=== PATIENT | male | born 1960 | race Caucasian/White ===

== ENCOUNTER → 2023-09-06 | Emergency (ER) | payer SELFPAY ==
[~2023-09-06] MED LIST: FENTANYL CITR 100 MCG/2 ML ONE; NA CHLORIDE 0.9% 1,000 ML ONE; NA CHLORIDE 0.9% 100 ML ONE; NA CHLORIDE 0.9% 250 ML ONE; ONDANSETRON 4 MG/2 ML VIAL ONE; PANTOPRAZOLE 40 MG INJ ONE; PIPERACIL/TAZO 3.375 GM VIAL IV ONE
--- NOTE | 2023-09-06 12:22 | RAD REPORT ---
EXAM DESCRIPTION: CT - Head C Spine Cap Wo Con - 09/06/2023 11:55 am CLINICAL HISTORY: Head and neck injury with chest and abdominal pain status post fall TECHNIQUE: Computed axial tomography of head, neck, chest, abdomen and pelvis obtained. IV and oral contrast not requested. Coronal and sagittal reconstruction performed. All CT scans are performed using dose optimization technique as appropriate and may include automated exposure control or mA/KV adjustment according to patient size. COMPARISON: None FINDINGS: An intracranial bleed is not seen. The ventricles are normal in caliber. An extra-axial fluid collection is not noted. Fluid within the sinuses/mastoids is not seen. A cervical fracture is not seen. No dislocation is noted. The evaluation of mediastinum, cortney, vessels, solid organs and bowel are limited secondary to the lac k of contrast administration. A mediastinal hematoma is not noted. A pleural effusion is not seen. A lung contusion is not present. The liver,spleen, pancreas, adrenals,kidneys and bladder do not demonstrate an acute traumatic injury Cholecystectomy Wall of the distal esophagus appears thickened Soft tissue structure right inguinal canal presumably testicle Normal appendix IMPRESSION: No acute intracranial abnormality is seen. A cervical fracture is not visualized. If the patient continues to have symptoms to suggest intracran ial/spinal cord pathology MRI be recommended No acute traumatic abnormality involving the chest, abdomen or pelvis Wall of the distal esophagus appears thickened which may indicate inflammation. Follow-up recommended
--- NOTE | 2023-09-06 13:07 | RAD REPORT ---
EXAM DESCRIPTION: RAD - Chest Single View - 09/06/2023 12:57 pm CLINICAL HISTORY: COUGH Chest pain. COMPARISON: No comparisons FINDINGS: Portable technique limits examination quality. The lungs are grossly clear. The heart is normal in size. No displaced fractures. IMPRESSION: No acute intrathoracic process suspected.
[2023-09-06 13:55] LABS: Absolute Lymphocytes (CBC) 1.3 K/uL (0.7-4.9); Hematocrit 39.3 % (39.6-49.0); Lymphocytes % 5.9 % (15.3-44.8); Platelets 349 thou/uL (152-406)
[2023-09-06 14:15] LABS: Albumin 2.4 g/dL (3.4-5.0); Bilirubin Direct 0.3 mg/dL (0-0.2); Bilirubin Indirect, Calculated 0.4 mg/dL (0.2-0.8); Bilirubin Total 0.7 mg/dL (0.2-1.0); Magnesium 2.2 mg/dL (1.6-2.4); Potassium 3.9 mEq/L (3.5-5.1); Protein, Total 6.2 g/dL (6.4-8.2)
[2023-09-06 14:18] LABS: Troponin High Sensitivity 83.9 pg/mL (<58.9)
--- NOTE | 2023-09-06 15:18 | EDPHYS ---
Physician Documentation [facility] Name: Yogi Luke Age: 63 yrs Sex: Male : 1960 Arrival Date: 09/06/2023 Time: 11:32 Bed 2 Private MD: ED Physician Toni Navarro HPI: 09/06 15:10 This 63 yrs old Male presents to ER via EMS with complaints of afia Nausea/Vomiting/Diarrhea. 15:10 The patient presents to the emergency department with nausea, vomiting, abdominal pain. afia Onset: The symptoms/episode began/occurred yesterday. Possible causes: bad food exposure. The symptoms are aggravated by nothing. The symptoms are alleviated by nothing. Associated signs and symptoms: Pertinent positives: abdominal pain, nausea, vomiting. Severity of symptoms: At their worst the symptoms were moderate in the emergency department the symptoms are unchanged. The patient has not experienced similar symptoms in the past. Historical: - Allergies: 11:38 No Known Allergies; kc6 - PMHx: 11:38 None; kc6 - PSHx: 11:38 Cholecystectomy; kc6 - Immunization history:: Adult Immunizations not up to date. - Social history:: Smoking status: Patient reports the use of cigarette tobacco products, smokes one pack cigarettes per day. ROS: 15:11 Constitutional: Negative for fever, chills, and weight loss, Eyes: Negative for injury, afia pain, redness, and discharge, ENT: Negative for injury, pain, and discharge, Neck: Negative for injury, pain, and swelling, Cardiovascular: Negative for chest pain, palpitations, and edema, Respiratory: Negative for shortness of breath, cough, wheezing, and pleuritic chest pain, Back: Negative for injury and pain, : Negative for injury, bleeding, discharge, and swelling, MS/Extremity: Negative for injury and deformity, Neuro: Negative for headache, weakness, numbness, tingling, and seizure, Psych: Negative for depression, anxiety, suicide ideation, homicidal ideation, and hallucinations, Allergy/Immunology: Negative for hives, rash, and allergies, Endocrine: Negative for neck swelling, polydipsia, polyuria, polyphagia, and marked weight changes, Hematologic/Lymphatic: Negative for swollen nodes, abnormal bleeding, and unusual bruising, 15:11 Abdomen/GI: Positive for abdominal pain, nausea and vomiting, abdominal cramps, abdominal distension, 15:11 MS/extremity: Positive for injury or acute deformity, decreased range of motion, pain, tenderness, of the left leg, Exam: 15:11 Abdomen/GI: Inspection: distension, Bowel sounds: normal, Palpation: mild abdominal afia tenderness, moderate abdominal tenderness, in the right upper quadrant and right lower quadrant, Rectal exam: rectal tone normal, stool guaiac positive, hemorrhoid(s), are not appreciated, mass, is not appreciated, swelling, is not appreciated, tenderness, is not appreciated, Liver: no appreciated palpable abnormalities, Hernia: not appreciated, 15:11 Constitutional: This is a well developed, well nourished patient who is awake, alert, and in no acute distress. Head/Face: Normocephalic, atraumatic. Eyes: Pupils equal round and reactive to light, extra-ocular motions intact. Lids and lashes normal. Conjunctiva and sclera are non-icteric and not injected. Cornea within normal limits. Periorbital areas with no swelling, redness, or edema. ENT: Nares patent. No nasal discharge, no septal abnormalities noted. Tympanic membranes are normal and external auditory canals are clear. Oropharynx with no redness, swelling, or masses, exudates, or evidence of obstruction, uvula midline. Mucous membranes moist. Neck: Trachea midline, no thyromegaly or masses palpated, and no cervical lymphadenopathy. Supple, full range of motion without nuchal rigidity, or vertebral point tenderness. No Meningismus. Chest/axilla: Normal chest wall appearance and motion. Nontender with no deformity. No lesions are appreciated. Cardiovascular: Regular rate and rhythm with a normal S1 and S2. No gallops, murmurs, or rubs. Normal PMI, no JVD. No pulse deficits. Respiratory: Lungs have equal breath sounds bilaterally, clear to auscultation and percussion. No rales, rhonchi or wheezes noted. No increased work of breathing, no retractions or nasal flaring. Back: No spinal tenderness. No costovertebral tenderness. Full range of motion. Male : Normal genitalia with no discharge or lesions. MS/ Extremity: Pulses equal, no cyanosis. Neurovascular intact. Full, normal range of motion. Neuro: Awake and alert, GCS 15, oriented to person, place, time, and situation. Cranial nerves II-XII grossly intact. Motor strength 5/5 in all extremities. Sensory grossly intact. Cerebellar exam normal. Normal gait. Psych: Awake, alert, with orientation to person, place and time. Behavior, mood, and affect are within normal limits. 15:11 ECG was reviewed by the Attending Physician. 17:31 Abdomen/GI: Inspection: distension, Bowel sounds: normal, Palpation: mild abdominal afia tenderness, moderate abdominal tenderness, in the right upper quadrant and left upper quadrant, Rectal exam: rectal tone normal, Stool: guaiac positive, black, hemorrhoid(s), are not appreciated, mass, is not appreciated, swelling, is not appreciated, tenderness, is not appreciated, fecal impaction, is not appreciated, Liver: no appreciated palpable abnormalities, Hernia: not appreciated, Vital Signs: 11:37 BP 93 / 65; Pulse 97; Resp 19 S; Temp 97.7(O); Pulse Ox 97% on R/A; Weight 111.13 kg kc6 (R); Height 5 ft. 7 in. (R); 12:10 Pulse 102; Resp 18; Pulse Ox 95% on R/A; ld1 13:49 BP 122 / 75; Pulse 93; Resp 18; Pulse Ox 100% on R/A; ld1 16:58 BP 120 / 74; Pulse 99; Resp 18; Pulse Ox 95% on R/A; ld1 17:58 BP 122 / 65; Pulse 99; Resp 18; Pulse Ox 98% on R/A; ld1 11:37 Body Mass Index 38.37 (111.13 kg, 170.18 cm) kc6 Bambi Coma Score: 15:44 Eye Response: spontaneous(4). Motor Response: obeys commands(6). Verbal Response: afia oriented(5). Total: 15. MDM: 11:39 Patient medically screened. afia 15:44 Differential diagnosis: Contusion of Hematoma on Intracranial bleed- Concussion without afia LOC. cerebral contusion, Nonspecific abd pain, gastritis, pancreatitis, diverticulitis, viral gastroenteritis, gastroenteritis. Differential Diagnosis: cardiac arrhythmia, cerebrovascular accident, emotional response, GI bleed, idiopathic syncope, transient ischemic attack, vasovagal episode. Data reviewed: vital signs, nurses notes, EMS record, lab test result(s), EKG, radiologic studies, CT scan, plain films. Consideration of Admission/Observation Escalation of care including admission/observation considered. I considered the following discharge prescriptions or medication management in the emergency department Medications were administered in the Emergency Department. See MAR. Independent interpretation of the following test(s) in the Emergency Department EKG: See my EKG interpretation above. Test considered but Not performed: MRI: NO MRCP. Historians other than the Patient: EMS: EMS WELL INFORMED. Care significantly affected by the following chronic conditions: Obesity, NONE. 09/06 11:41 Order name: Basic Metabolic Panel; Complete Time: 15:00 [facility] 09/06 11:41 Order name: CBC with Diff; Complete Time: 15:46 [facility] 09/06 11:41 Order name: LFT's; Complete Time: 15:00 [facility] 09/06 11:41 Order name: Magnesium; Complete Time: 15:00 [facility] 09/06 11:41 Order name: NT PRO-BNP; Complete Time: 15:00 [facility] 09/06 11:41 Order name: PT-INR; Complete Time: 15:46 [facility] 09/06 11:41 Order name: Troponin HS; Complete Time: 15:00 [facility] 09/06 11:41 Order name: Lipase; Complete Time: 15:00 [facility] 09/06 15:09 Order name: Lactate w/ 2H reflex if indic.; Complete Time: 17:53 [facility] 09/06 15:11 Order name: CPK; Complete Time: 17:20 [facility] 09/06 15:24 Order name: CBC Smear Scan; Complete Time: 15:46 [facility] 09/06 15:53 Order name: CBC with Diff; Complete Time: 17:20 [facility] 09/06 11:41 Order name: XRAY Chest (1 view); Complete Time: 15:00 [facility] 09/06 11:54 Order name: Head C Spine Cap Wo Con; Complete Time: 15:00 [facility] 09/06 11:41 Order name: EKG; Complete Time: 11:42 [facility] 09/06 11:41 Order name: Cardiac monitoring; Complete Time: 11:49 [facility] 09/06 11:41 Order name: EKG - Nurse/Tech; Complete Time: 11:49 [facility] 09/06 11:41 Order name: IV Saline Lock; Complete Time: 11:49 [facility] 09/06 11:41 Order name: Labs collected and sent; Complete Time: 12:11 [facility] 09/06 11:41 Order name: O2 Per Protocol; Complete Time: 11:49 [facility] 09/06 11:41 Order name: O2 Sat Monitoring; Complete Time: 11:49 [facility] 09/06 11:41 Order name: IV Saline Lock - Large Bore; Complete Time: 11:49 [facility] 09/06 12:34 Order name: Labs - recollect needed: all tubes.; Complete Time: 13:47 [facility] 09/06 14:00 Order name: Labs - recollect needed: blue; Complete Time: 14:44 [facility] 09/06 15:07 Order name: IV Saline Lock - Large Bore; Complete Time: 15:08 [facility] EC:11 Rate is 98 beats/min. Rhythm is regular. QRS [place] is Normal. MO interval is normal. QRS afia interval is normal. QT interval is normal. No Q waves. T waves are Normal. No ST changes noted. Clinical impression: NSR w/ Non-specific ST/T Changes and No evidence of ischemia. Interpreted by me. Reviewed by me. Administered Medications: 12:09 Drug: NS 0.9% IV 1000 ml IV at 1 bolus Per protocol; 1000 mL bolus Route: IV; Rate: 1 ld1 bolus; Site: left hand; 12:09 Drug: NS 0.9% IV 1000 ml IV at 1 bolus Per protocol; 1000 mL bolus Route: IV; Rate: 1 ld1 bolus; Site: left antecubital; 16:56 Drug: Ondansetron IVP 4 mg IVP once; over 2 minutes Route: IVP; Site: right forearm; ld1 16:56 Drug: NS 0.9% IV 1000 ml IV at 125 ml/hr continuous Route: IV; Rate: 125 ml/hr; Site: ld1 right forearm; 16:57 Drug: Pantoprazole IVP 80 mg IVP once Route: IVP; Site: right forearm; ld1 16:57 Drug: Pantoprazole IV 8 mg/hr IV at 25 ml/hr continuous; (Standard dilution is 80 mg in ld1 250 mL NS) Route: IV; Rate: 25 ml/hr; Site: right forearm; 16:57 Drug: Piperacillin-Tazobactam IVPB 3.375 grams IVPB once over 60 mins; (mix in NS 100 ld1 mL) Route: IVPB; Infused Over: 60 mins; Site: left antecubital; 16:57 Not Given (Other Intervention Used): fentanyl (pf)25 mcg IVP once ld1 16:57 Drug: fentaNYL (PF) IVP 25 mcg IVP once Route: IVP; Site: right forearm; ld1 17:27 Drug: NS 0.9% IV 1000 ml IV at 1 bolus Per protocol; 1000 mL bolus Route: IV; Rate: 1 ld1 bolus; Site: left antecubital; Disposition Summary: 09/06/23 15:18 Transfer Ordered Notes: Transfer Location: [facility] afia Reason: Higher level of care afia Condition: Fair afia Problem: new afia Symptoms: have improved afia Accepting Physician: TO [facility](09/06/23 18:33) ld1 Diagnosis - Abdominal pain, Generalized afia - Non ST elevation MS afia - Vomiting afia - Syncope Near afia - Unspecified injury of head, initial encounter afia - Abrasion of unspecified part of head - FOREHEAD afia - GI Bleed/ Gastrointestinal hemorrhage, unspecified - UPPER afia - Elevated white blood cell count afia - Obesity, unspecified afia - Esophagitis, unspecified afia Forms: - Medication Reconciliation Form afia - SBAR form afia Signatures: Dispatcher [employer] EDMS Toni Navarro MD MD cha Sims, Lauren RN RN ld1 Debora Meza RN RN kc6 Nancy Stapleton 6 Corrections: (The following items were deleted from the chart) 11:54 11:42 Abdomen Pelvis Wo Con+CT.RAD.BRZ ordered. [facility] EDOR 15:50 15:18 TO [facility] afia afia 18:33 15:50 TO [facility] afia ld1
--- NOTE | 2023-09-06 15:18 | ER ---
Nurse's Notes [facility] Name: Yogi Luke Age: 63 yrs Sex: Male : 1960 Arrival Date: 09/06/2023 Time: 11:32 Bed 2 Private MD: Diagnosis: Abdominal pain, Generalized;Non ST elevation [place];Vomiting;Syncope Near;Unspecified injury of head, initial encounter;Abrasion of unspecified part of head-FOREHEAD;GI Bleed/ Gastrointestinal hemorrhage, unspecified-UPPER ;Elevated white blood cell count;Obesity, unspecified;Esophagitis, unspecified Presentation: 09/06 11:37 Chief complaint: EMS states: they were toned our for n/v/d, dark red blood x12hrs with kc6 dizziness. pt reports having had fallen 3 times. Coronavirus screen: At this time, the client does not indicate any symptoms associated with coronavirus-19. Ebola Screen: No symptoms or risks identified at this time. Initial Sepsis Screen: Does the patient meet any 2 criteria? No. Patient's initial sepsis screen is negative. Does the patient have a suspected source of infection? No. Patient's initial sepsis screen is negative. Risk Assessment: Do you want to hurt yourself or someone else? Patient reports no desire to harm self or others. Onset of symptoms was September 06, 2023. 11:37 Method Of Arrival: EMS: [place] [id number] 11:37 Acuity: JARRET 2 kc6 Triage Assessment: 11:38 General: Appears in no apparent distress. comfortable, unkempt, well developed, kc6 Behavior is calm, cooperative, appropriate for age. Pain: Complains of pain in epigastric area. EENT: No signs and/or symptoms were reported regarding the EENT system. Neuro: Level of Consciousness is awake, alert, obeys commands, Oriented to person, place, time, situation, Appropriate for age. Cardiovascular: Capillary refill < 3 seconds. Respiratory: Airway is patent Trachea midline Respiratory effort is even, unlabored, Respiratory pattern is regular, symmetrical. GI: Abdomen is flat, non-distended, Bowel sounds present X 4 quads. Reports upper abdominal pain, diarrhea, bloody stool, nausea, vomiting. : No signs and/or symptoms were reported regarding the genitourinary system. Derm: No signs and/or symptoms reported regarding the dermatologic system. Skin has skin tears on left arm, forehead Skin is clammy, Skin is pale, Skin temperature is cool. Musculoskeletal: No signs and/or symptoms reported regarding the musculoskeletal system. Circulation, motion, and sensation intact. Capillary refill < 3 seconds, Range of motion: intact in all extremities. Historical: - Allergies: 11:38 No Known Allergies; kc6 - PMHx: 11:38 None; kc6 - PSHx: 11:38 Cholecystectomy; kc6 - Immunization history:: Adult Immunizations not up to date. - Social history:: Smoking status: Patient reports the use of cigarette tobacco products, smokes one pack cigarettes per day. Screenin:40 [facility] ED Fall Risk Assessment (Adult) History of falling in the last 3 months, kc6 including since admission Yes- fall prone (multiple falls) (3 pts) Confusion or Disorientation No (0 pts) Intoxicated or Sedated No (0 pts) Impaired Gait No (0 pts) Mobility Assist Device Used No (0 pt) Altered Elimination No (0 pt) Score/Fall Risk Level 0 - 2 = Low Risk. Abuse screen: Denies threats or abuse. Denies injuries from another. Nutritional screening: No deficits noted. Tuberculosis screening: No symptoms or risk factors identified. Assessment: 11:40 Reassessment: please see triage assessment. [facility] 12:10 General: Appears in no apparent distress. comfortable, Behavior is calm, cooperative, ld1 appropriate for age. Pain: Denies pain. Neuro: Level of Consciousness is awake, alert, obeys commands, Oriented to person, place, time, situation. Cardiovascular: Capillary refill < 3 seconds Patient's skin is warm and dry. Respiratory: Airway is patent Respiratory effort is even, unlabored. GI: Abdomen is round non-distended, Reports diarrhea, nausea, vomiting. : No signs and/or symptoms were reported regarding the genitourinary system. EENT: No signs and/or symptoms were reported regarding the EENT system. Derm: No signs and/or symptoms reported regarding the dermatologic system. Musculoskeletal: No signs and/or symptoms reported regarding the musculoskeletal system. 12:15 Reassessment: Pt cleaned of incontinence. Completely soiled in feces. Sponge bath given ld1 to patient, linen changed. 13:45 Reassessment: No changes from previously documented assessment. Patient states symptoms ld1 have not improved. 15:00 Reassessment: Patient appears in no apparent distress at this time. No changes from ld1 previously documented assessment. Pt c/o confusion, and nausea. Patient states symptoms have not improved. 16:15 Reassessment: Patient appears in no apparent distress at this time. No changes from ld1 previously documented assessment. Patient states symptoms have not improved. 17:30 Reassessment: Patient appears in no apparent distress at this time. No changes from ld1 previously documented assessment. Patient states symptoms have improved. Vital Signs: 11:37 BP 93 / 65; Pulse 97; Resp 19 S; Temp 97.7(O); Pulse Ox 97% on R/A; Weight 111.13 kg kc6 (R); Height 5 ft. 7 in. (R); 12:10 Pulse 102; Resp 18; Pulse Ox 95% on R/A; ld1 13:49 BP 122 / 75; Pulse 93; Resp 18; Pulse Ox 100% on R/A; ld1 16:58 BP 120 / 74; Pulse 99; Resp 18; Pulse Ox 95% on R/A; ld1 17:58 BP 122 / 65; Pulse 99; Resp 18; Pulse Ox 98% on R/A; ld1 11:37 Body Mass Index 38.37 (111.13 kg, 170.18 cm) kc6 [place] Coma Score: 15:44 Eye Response: spontaneous(4). Motor Response: obeys commands(6). Verbal Response: afia oriented(5). Total: 15. ED Course: 11:37 Patient arrived in ED. em1 11:38 Triage completed. kc6 11:38 Arm band placed on. kc6 11:39 Toni Navarro MD is Attending Physician. afia 11:40 Maintain EMS IV. Dressing intact. Good blood return noted. Site clean \T\ dry. Gauge \T\ kirstin 6 site: 20G LHAND. Patient maintains SpO2 saturation greater than 95% on room air. 11:41 Patient has correct armband on for positive identification. Placed in gown. Bed in low kc6 position. Call light in reach. Side rails up X2. Client placed on continuous cardiac and pulse oximetry monitoring. NIBP monitoring applied. youth nutritional monitor on. 11:57 Head C Spine Cap Wo Con In Process Unspecified. EDMS 12:09 Loida Lanier RN is Primary Nurse. ld1 12:10 Door closed. Noise minimized. Warm blanket given. ld1 12:10 No provider procedures requiring assistance completed. ld1 12:29 Initial lab(s) drawn, by me, sent to lab. EKG done, by ED staff. [email or web address] 12:59 XRAY Chest (1 view) In Process Unspecified. EDMS 14:44 Inserted saline lock: 22 gauge in right forearm, using aseptic technique. Blood as6 collected. 16:58 Inserted saline lock: 20 gauge in left antecubital area, using aseptic technique. Blood ld1 collected. Administered Medications: 12:09 Drug: NS 0.9% IV 1000 ml IV at 1 bolus Per protocol; 1000 mL bolus Route: IV; Rate: 1 ld1 bolus; Site: left hand; 12:09 Drug: NS 0.9% IV 1000 ml IV at 1 bolus Per protocol; 1000 mL bolus Route: IV; Rate: 1 ld1 bolus; Site: left antecubital; 16:56 Drug: Ondansetron IVP 4 mg IVP once; over 2 minutes Route: IVP; Site: right forearm; ld1 16:56 Drug: NS 0.9% IV 1000 ml IV at 125 ml/hr continuous Route: IV; Rate: 125 ml/hr; Site: ld1 right forearm; 16:57 Drug: Pantoprazole IVP 80 mg IVP once Route: IVP; Site: right forearm; ld1 16:57 Drug: Pantoprazole IV 8 mg/hr IV at 25 ml/hr continuous; (Standard dilution is 80 mg in ld1 250 mL NS) Route: IV; Rate: 25 ml/hr; Site: right forearm; 16:57 Drug: Piperacillin-Tazobactam IVPB 3.375 grams IVPB once over 60 mins; (mix in NS 100 ld1 mL) Route: IVPB; Infused Over: 60 mins; Site: left antecubital; 16:57 Not Given (Other Intervention Used): fentanyl (pf)25 mcg IVP once ld1 16:57 Drug: fentaNYL (PF) IVP 25 mcg IVP once Route: IVP; Site: right forearm; ld1 17:27 Drug: NS 0.9% IV 1000 ml IV at 1 bolus Per protocol; 1000 mL bolus Route: IV; Rate: 1 ld1 bolus; Site: left antecubital; Medication: 12:10 VIS not applicable for this client. ld1 Outcome: 15:18 ER care complete, transfer ordered by MD. oreilly 18:33 Patient left the ED. ld1 Signatures: Dispatcher [employer] EDMS Toni Navarro MD MD cha Martinez, Eric 1 Loida Lanier RN RN ld1 Nathaniel Recinos RN RN as6 Debora Meza RN RN kc6 Rick Weiss [email or web address]
[2023-09-06 15:23] LABS: White Blood Cell Scan OK (OK)
[2023-09-06 15:24] LABS: Blood Morphology Comment NOT SEEN (NOT SEEN); Platelet Estimate ADEQ
[2023-09-06 15:24] LABS: Protime INR 1.1
[2023-09-06 16:58] LABS: Hematocrit 35.6 % (39.6-49.0); Lymphocytes % 8.1 % (15.3-44.8); MCV 95.5 fL (80-100); MPV 8.3 fL (7.6-11.3); Platelets 397 thou/uL (152-406); RBC Red Blood Cell Count 3.73 M/uL (4.33-5.43)
--- NOTE | 2023-09-10 11:07 | EKG ---
Test Date: 2023-09-06 Test Time: 11:47:17 Chief Estimator: REMY MEASUREMENT RESULTS: Intervals: Rate: 98 WI: 132 QRSD: 80 QT: 366 QTc: 467 Innis: P: 74 WI: 132 QRS: 20 T: 85 INTERPRETIVE STATEMENTS: Normal sinus rhythm Normal ECG No previous ECG available for comparison Electronically Signed On 09-10-23 11:00:52 [employer] by Gerardo Razo
== END ==
LOC: ER 11:32
DX: I22.2 Subsequent non-ST elevation (NSTEMI) myocardial infarction (principal); I21.9 Acute myocardial infarction, unspecified; R11.10 Vomiting, unspecified; R55 Syncope and collapse; S00.81XA Abrasion of other part of head, initial encounter; K92.2 Gastrointestinal hemorrhage, unspecified; D72.829 Elevated white blood cell count, unspecified; K20.90 Esophagitis, unspecified without bleeding; E66.9 Obesity, unspecified; Z68.38 Body mass index [BMI] 38.0-38.9, adult
CPT/HCPCS: 36415; 70450; 71045; 71250; 72125; 80048; 80076; 82550; 83605; 83690; 83735; 83880; 84484; 85025; 85610; 93005; 99285; C9113; J2405; J2543; J3010; J7030; J7050